=== PATIENT | male | born 1975 ===

== ENCOUNTER 2018-07-06 14:21 | Inpatient (IN) ==
[2018-07-06] MEDS ORDERED: SODIUM CHLORIDE 0.9% 1,000 ML IV STA (14:42)
[2018-07-06] MEDS ORDERED: PANTOPRAZOLE 40 MG VIAL IV STA (14:42)
[2018-07-06 15:01] LABS: Basophils # 0.1 10*3/uL (0.0-0.2); Basophils % 0.8 % (0.0-0.8); Eosinophils % 0.4 % (0.00-10.9); Hematocrit 35.9 VOL% (42.0-52.0); Immature Granulocytes % 5.6 %; Lymphocytes # 0.5 10*3/uL (1.4-4.0); Lymphocytes % 6.4 % (21.2-54.2); Mean Corpuscular HGB Conc 36.2 GM/DL (32-36); Mean Corpuscular Hemoglobin 33 PG (27-34); Mean Corpuscular Volume 90.9 FL (87-102); Mean Platelet Volume 9.6 FL (9.6-12.0); Monocytes # 0.8 10*3/uL (0.11-0.8); Monocytes % 10.6 % (1.7-12.7); NRBC # 0.05 10*3/uL; Neutrophils # 5.5 10*3/uL (1.4-7.4); Neutrophils % 76.2 % (38.7-73.9); Platelet Count 274 T/CUMM (130-400); Red Blood Count 3.95 MC/CUMM (3.8-5.5); Red Cell Distribution Width 12.9 % (9.3-17.3); White Blood Count 7.2 T/CUMM (4-12)
[2018-07-06 15:12] LABS: INR 1.2; PT Patient Result 12.6 SECS; Partial Thromboplastin Time 31.5 SECS (0-40)
[2018-07-06 15:18] LABS: Albumin 3.2 G/DL (3.4-5.0); Bilirubin,Total 1.3 MG/DL (0.2-1.0); Calcium 8.9 MG/DL (8.5-10.1); Osmolality,Calculated 269.2 MOS/KG (273-304); Total Protein 7.2 G/DL (6.4-8.3)
[2018-07-06 16:43] LABS: Lymphocytes 5 % (20-55); Metamyelocytes 1 %; Myelocytes 1 %; Segmented Neutrophils 83 % (50-85); Total Cells Counted 100
[2018-07-06 16:44] LABS: Anisocytosis Slight; Microcytosis Slight
[2018-07-06 16:52] LABS: Platelet Estimate Normal; Stomatocytes Slight
[2018-07-06] MEDS ORDERED: MORPHINE 4 MG/1 ML VIAL IV PRN (18:02)
[2018-07-06] MEDS ORDERED: ACETAMINOPHEN 325 MG TABLET PO PRN (18:02)
[2018-07-06] MEDS ORDERED: HYDROcod/ACETAMIN 7.5-325 MG/15 ML UDCUP PO PRN (18:16)
[2018-07-06] MEDS: POTASSIUM CHLORIDE RIDER 10 MEQ in PREMIX 1 EACH IV SCH ×4 (18:33→21:57)
[2018-07-06] MEDS: DEXTROSE 5% NACL 0.9% 1,000 ML IV SCH (18:33)
[2018-07-06 19:06] LABS: Basophils # 0.1 10*3/uL (0.0-0.2); Basophils % 0.8 % (0.0-0.8); Eosinophils % 0.5 % (0.00-10.9); Hematocrit 33.8 VOL% (42.0-52.0); Hemoglobin 11.9 GM/DL (14.0-18.0); Immature Granulocytes % 5.9 %; Immature Granulocytes Absolute 0.36 #; Lymphocytes # 0.5 10*3/uL (1.4-4.0); Lymphocytes % 7.7 % (21.2-54.2); Mean Corpuscular HGB Conc 35.2 GM/DL (32-36); Mean Corpuscular Hemoglobin 33 PG (27-34); Mean Corpuscular Volume 92.9 FL (87-102); Mean Platelet Volume 9.5 FL (9.6-12.0); Monocytes # 0.7 10*3/uL (0.11-0.8); Monocytes % 11.3 % (1.7-12.7); Neutrophils # 4.5 10*3/uL (1.4-7.4); Neutrophils % 73.8 % (38.7-73.9); Platelet Count 219 T/CUMM (130-400); Red Blood Count 3.64 MC/CUMM (3.8-5.5); Red Cell Distribution Width 13.1 % (9.3-17.3); White Blood Count 6.1 T/CUMM (4-12)
[2018-07-06] MEDS: PANTOPRAZOLE 40 MG VIAL IV SCH (20:45)
[2018-07-06 20:55] LABS: Lymphocytes 9 % (20-55); Segmented Neutrophils 76 % (50-85); Total Cells Counted 100
[2018-07-06 20:56] LABS: Macrocytosis Slight; Platelet Estimate Adequate
[2018-07-06 21:32] LABS: Basophils % 0.6 % (0.0-0.8); Eosinophils % 0.8 % (0.00-10.9); Hematocrit 29.8 VOL% (42.0-52.0); Hemoglobin 10.7 GM/DL (14.0-18.0); Immature Granulocytes Absolute 0.31 #; Lymphocytes # 0.5 10*3/uL (1.4-4.0); Lymphocytes % 8.8 % (21.2-54.2); Mean Corpuscular HGB Conc 35.9 GM/DL (32-36); Mean Corpuscular Hemoglobin 33 PG (27-34); Mean Corpuscular Volume 91.1 FL (87-102); Mean Platelet Volume 9.3 FL (9.6-12.0); Monocytes # 0.6 10*3/uL (0.11-0.8); Monocytes % 11.9 % (1.7-12.7); Neutrophils # 3.7 10*3/uL (1.4-7.4); Neutrophils % 71.9 % (38.7-73.9); Platelet Count 195 T/CUMM (130-400); Red Blood Count 3.27 MC/CUMM (3.8-5.5); Red Cell Distribution Width 12.9 % (9.3-17.3); White Blood Count 5.1 T/CUMM (4-12)
[2018-07-06 22:39] LABS: Eosinophils 2 % (0-10); Lymphocytes 12 % (20-55); Segmented Neutrophils 77 % (50-85); Total Cells Counted 100
[2018-07-06 22:50] LABS: Anisocytosis Slight; Microcytosis Slight; Polychromasia Slight
[2018-07-06 22:51] LABS: Platelet Estimate Normal
[2018-07-07] MEDS: DEXTROSE 5% NACL 0.9% 1,000 ML IV SCH ×3 (02:39→20:39)
[2018-07-07 05:37] LABS: Basophils % 0.6 % (0.0-0.8); Eosinophils # 0.1 10*3/uL (0.0-0.87); Hematocrit 29.3 VOL% (42.0-52.0); Hemoglobin 10.2 GM/DL (14.0-18.0); Immature Granulocytes % 6.3 %; Immature Granulocytes Absolute 0.31 #; Lymphocytes # 0.4 10*3/uL (1.4-4.0); Lymphocytes % 7.8 % (21.2-54.2); Mean Corpuscular HGB Conc 34.8 GM/DL (32-36); Mean Corpuscular Hemoglobin 33 PG (27-34); Mean Corpuscular Volume 93.9 FL (87-102); Mean Platelet Volume 9.4 FL (9.6-12.0); Monocytes # 0.6 10*3/uL (0.11-0.8); Monocytes % 12.9 % (1.7-12.7); Neutrophils # 3.5 10*3/uL (1.4-7.4); Neutrophils % 71.4 % (38.7-73.9); Platelet Count 193 T/CUMM (130-400); Red Blood Count 3.12 MC/CUMM (3.8-5.5); Red Cell Distribution Width 13.1 % (9.3-17.3); White Blood Count 4.9 T/CUMM (4-12)
[2018-07-07 05:51] LABS: Calcium 8.1 MG/DL (8.5-10.1); Osmolality,Calculated 275.5 MOS/KG (273-304); Potassium 3.3 MMOL/L (3.5-5.1)
[2018-07-07 05:52] LABS: Calcium 8.2 MG/DL (8.5-10.1); Osmolality,Calculated 276.5 MOS/KG (273-304); Potassium 3.4 MMOL/L (3.5-5.1)
[2018-07-07 06:08] LABS: Eosinophils 1 % (0-10); Hypochromasia 1+; Lymphocytes 10 % (20-55); Nucleated Red Blood Cells 1 (0-5); Platelet Estimate Adequate; Segmented Neutrophils 86 % (50-85); Total Cells Counted 100
[2018-07-07 06:09] LABS: Microcytosis Slight; Ovalocytes Slight
[2018-07-07] MEDS: PANTOPRAZOLE 40 MG VIAL IV SCH ×2 (08:17→20:32)
[2018-07-07 10:26] LABS: Basophils % 0.6 % (0.0-0.8); Eosinophils % 0.6 % (0.00-10.9); Hematocrit 29.4 VOL% (42.0-52.0); Hemoglobin 10.3 GM/DL (14.0-18.0); Immature Granulocytes % 5.1 %; Immature Granulocytes Absolute 0.26 #; Lymphocytes # 0.3 10*3/uL (1.4-4.0); Lymphocytes % 5.7 % (21.2-54.2); Mean Corpuscular Hemoglobin 33 PG (27-34); Mean Corpuscular Volume 93.6 FL (87-102); Mean Platelet Volume 9.3 FL (9.6-12.0); Monocytes # 0.5 10*3/uL (0.11-0.8); Monocytes % 10.7 % (1.7-12.7); Neutrophils # 3.9 10*3/uL (1.4-7.4); Neutrophils % 77.3 % (38.7-73.9); Platelet Count 189 T/CUMM (130-400); Red Blood Count 3.14 MC/CUMM (3.8-5.5); Red Cell Distribution Width 13.2 % (9.3-17.3); White Blood Count 5.1 T/CUMM (4-12)
[2018-07-07 11:19] LABS: Eosinophils 1 % (0-10); Lymphocytes 10 % (20-55); Microcytosis 1+; Segmented Neutrophils 80 % (50-85); Total Cells Counted 100
[2018-07-07] MEDS: SODIUM CHLORIDE 0.65% NASAL SPRAY 45 ML BOTTLE BOTH NARES SCH (14:02)
[2018-07-07] MEDS: MUPIROCIN 2% OINT 22 GM TUBE TOP SCH (14:03)
[2018-07-08] MEDS: MUPIROCIN 2% OINT 22 GM TUBE TOP SCH ×3 (00:39→09:27)
[2018-07-08] MEDS: SODIUM CHLORIDE 0.65% NASAL SPRAY 45 ML BOTTLE BOTH NARES SCH ×3 (00:39→09:27)
[2018-07-08] MEDS: DEXTROSE 5% NACL 0.9% 1,000 ML IV SCH (04:50)
[2018-07-08 05:11] LABS: Basophils % 0.5 % (0.0-0.8); Eosinophils # 0.1 10*3/uL (0.0-0.87); Eosinophils % 1.5 % (0.00-10.9); Hematocrit 26.7 VOL% (42.0-52.0); Hemoglobin 9.4 GM/DL (14.0-18.0); Immature Granulocytes % 7.4 %; Lymphocytes # 0.4 10*3/uL (1.4-4.0); Lymphocytes % 9.9 % (21.2-54.2); Mean Corpuscular HGB Conc 35.2 GM/DL (32-36); Mean Corpuscular Hemoglobin 33 PG (27-34); Mean Corpuscular Volume 92.4 FL (87-102); Mean Platelet Volume 9.5 FL (9.6-12.0); Monocytes # 0.5 10*3/uL (0.11-0.8); Monocytes % 11.1 % (1.7-12.7); Neutrophils # 2.8 10*3/uL (1.4-7.4); Neutrophils % 69.6 % (38.7-73.9); Platelet Count 179 T/CUMM (130-400); Red Blood Count 2.89 MC/CUMM (3.8-5.5); Red Cell Distribution Width 13.1 % (9.3-17.3); White Blood Count 4.1 T/CUMM (4-12)
[2018-07-08 05:15] LABS: Calcium 7.8 MG/DL (8.5-10.1); Osmolality,Calculated 269.8 MOS/KG (273-304); Potassium 2.9 MMOL/L (3.5-5.1)
[2018-07-08 05:40] LABS: Band Neutrophils 1 % (0-10); Eosinophils 1 % (0-10); Lymphocytes 11 % (20-55); Segmented Neutrophils 77 % (50-85); Total Cells Counted 100
[2018-07-08 05:41] LABS: Hypochromasia 1+; Microcytosis Slight; Ovalocytes Slight; Platelet Estimate Adequate
[2018-07-08] MEDS ORDERED: DEXT 5% NACL 0.45% KCL 40 MEQ 40 MEQ/1,000 ML BAG IV SCH (08:30)
[2018-07-08] MEDS: PANTOPRAZOLE 40 MG VIAL IV SCH (09:25)
[2018-07-08] MEDS ORDERED: LORazepam 2 MG/1 ML VIAL IV ONE (09:53)
[2018-07-08] MEDS ORDERED: POTASSIUM CHLORIDE 20 MEQ TABLET PO PRN (15:11)
[2018-07-08] MEDS ORDERED: MAGNESIUM SULF RIDER 2 GM in PREMIX 1 EACH IV ONE (15:14)
[2018-07-08] MEDS ORDERED: THIAMINE 200 MG/2 ML VIAL IV SCH ×2 (15:30→15:35)
[2018-07-08] MEDS ORDERED: MAGNESIUM SULF RIDER 4 GM in PREMIX 1 EACH IV PRN (15:32)
[2018-07-08] MEDS ORDERED: MAGNESIUM SULF RIDER 2 GM in PREMIX 1 EACH IV PRN (15:32)
[2018-07-08] MEDS ORDERED: THIAMINE INJ 500 MG in SODIUM CHLORIDE 0.9% 100 ML IV SCH (16:00)
[2018-07-08 16:01] VITALS: BP 127/85
[2018-07-08] MEDS ORDERED: LACTULOSE 20 GM/30 ML UDCUP PO SCH (21:00)
== END 2018-07-08 19:22 | disposition hospice, home (50) | DRG 147 ==
LOC: EDBD → EDUNIT# → N.ED 14:21 → N.EDINP 16:23 → SUATTDRO 16:23 → N.ICU 17:03 → N.4E 07-07 11:23
PROVIDERS: ADMIT Internal Medicine; ATTEND Internal Medicine

== ENCOUNTER 2020-09-07 18:22 | Inpatient (IN) ==
[2020-09-07] MEDS ORDERED: MORPHINE 4 MG/1 ML VIAL IV PRN (18:46)
[2020-09-07] MEDS ORDERED: ONDANSETRON 4 MG/2 ML VIAL IV PRN (18:46)
[2020-09-07] MEDS: DEXTROSE 5% NACL 0.45% 1,000 ML IV SCH (18:59)
[2020-09-07] MEDS ORDERED: DEXTROSE 5% NACL 0.45% 1,000 ML IV SCH (19:00)
[2020-09-07] MEDS ORDERED: SODIUM CHLORIDE 0.9% 1,000 ML IV STA (19:43)
[2020-09-08] MEDS: PIPERACILLIN/TAZOBACTAM 3,375 MG in SODIUM CHLORIDE 0.9% 100 ML IV SCH ×4 (02:36→21:56)
[2020-09-08 06:03] LABS: Basophils % 0.1 % (0.0-0.8); Hematocrit 39.6 VOL% (42.0-52.0); Hemoglobin 13.6 GM/DL (14.0-18.0); Immature Granulocytes % 0.6 %; Immature Granulocytes Absolute 0.09 #; Lymphocytes # 0.5 10*3/uL (1.4-4.0); Mean Corpuscular HGB Conc 34.3 GM/DL (32-36); Mean Corpuscular Volume 96.1 FL (87-102); Mean Platelet Volume 8.9 FL (9.6-12.0); Monocytes % 3.2 % (1.7-12.7); Neutrophils % 93.1 % (38.7-73.9); Platelet Count 233 T/CUMM (130-400); Red Blood Count 4.12 MC/CUMM (3.8-5.5); Red Cell Distribution Width 12.6 % (9.3-17.3); White Blood Count 15.2 T/CUMM (4-12)
[2020-09-08 06:16] LABS: Alanine Aminotransferase < 9 U/L (16-61); Albumin 2.5 G/DL (3.4-5.0); Alkaline Phosphatase 65 U/L (45-117); Aspartate Amino Transferase 9 U/L (0-37); Blood Urea Nitrogen 24 MG/DL (7-18); Calcium 8.5 MG/DL (8.5-10.1); Carbon Dioxide 28 MMOL/L (21-32); Estimated Glom Filtration Rate 112 ML/MIN; Glucose 96 MG/DL (74-106); Osmolality,Calculated 286.1 MOS/KG (273-304); Potassium 3.3 MMOL/L (3.5-5.1); Sodium 142 MMOL/L (136-145); Total Protein 6.2 G/DL (6.4-8.2)
[2020-09-08 06:47] LABS: Band Neutrophils 1 % (0-10); Lymphocytes 2 % (20-55); Segmented Neutrophils 95 % (50-85); Total Cells Counted 100
[2020-09-08 06:48] LABS: Microcytosis Slight; Platelet Estimate Normal
[2020-09-08] MEDS: PANTOPRAZOLE 40 MG VIAL IV SCH (08:16)
[2020-09-08] MEDS ORDERED: DIAZEPAM 5 MG TABLET PO ONE (09:00)
[2020-09-08] MEDS ORDERED: LACTATED RINGERS 1,000 ML IV SCH (09:00)
[2020-09-08] MEDS: POTASSIUM CHLORIDE RIDER 10 MEQ in PREMIX 1 EACH IV PRN ×4 (09:03→16:57)
[2020-09-08] MEDS ORDERED: LIDOCAINE 1%/EPI INJ 20 ML VIAL ONE (10:03)
[2020-09-08] MEDS ORDERED: TISSUE ADHESIVE 1 EACH APPLICATOR TOP ONE (10:03)
[2020-09-08] MEDS ORDERED: BUPIVACAINE MPF 0.25% 30 ML VIAL ONE (10:03)
[2020-09-08] MEDS ORDERED: fentaNYL 100 MCG/2 ML VIAL ONE (10:11)
[2020-09-08] MEDS ORDERED: MIDAZOLAM 2 MG/2 ML VIAL ONE (10:11)
[2020-09-08] MEDS ORDERED: SEVOFLURANE 1 UNIT/15 MINUTE INH ONE ×6 (10:11→12:27)
[2020-09-08] MEDS ORDERED: LIDOCAINE 2% 5 ML VIAL ONE (10:12)
[2020-09-08] MEDS ORDERED: propofoL 200 MG/20 ML VIAL IV ONE ×2 (10:12→11:26)
[2020-09-08] MEDS ORDERED: ROCURONIUM 50 MG/5 ML VIAL IV ONE ×3 (10:12→12:27)
[2020-09-08] MEDS ORDERED: ONDANSETRON 4 MG/2 ML VIAL ONE (10:45)
[2020-09-08] MEDS ORDERED: DEXAMETHASONE 4 MG/1 ML VIAL ONE (11:04)
[2020-09-08] MEDS ORDERED: LACTATED RINGERS 1,000 ML IV ONE (11:28)
[2020-09-08] MEDS ORDERED: GLYCOPYRROLATE 0.4 MG/2 ML VIAL ONE (11:41)
[2020-09-08] MEDS ORDERED: NEOSTIGMINE 10 MG/10 ML VIAL ONE (11:41)
[2020-09-08] MEDS ORDERED: HYDROmorphone 2 MG/1 ML VIAL IV PRN (12:39)
[2020-09-08] MEDS ORDERED: MEPERIDINE 25 MG/1 ML VIAL IV PRN (12:39)
[2020-09-08] MEDS ORDERED: PROMETHAZINE INJ 25 MG in SODIUM CHLORIDE 0.9% 50 ML IV PRN (12:39)
[2020-09-08] MEDS ORDERED: diphenhydrAMINE 50 MG/1 ML VIAL IV PRN (12:39)
[2020-09-08] MEDS ORDERED: ONDANSETRON 4 MG/2 ML VIAL IV PRN (12:39)
[2020-09-08] MEDS: DEXTROSE 5% NACL 0.45% 1,000 ML IV SCH ×3 (14:04→22:00)
[2020-09-09] MEDS: PIPERACILLIN/TAZOBACTAM 3,375 MG in SODIUM CHLORIDE 0.9% 100 ML IV SCH ×3 (05:41→21:46)
[2020-09-09] MEDS: DEXTROSE 5% NACL 0.45% 1,000 ML IV SCH (05:44)
[2020-09-09 06:02] LABS: Basophils % 0.2 % (0.0-0.8); Hematocrit 38.6 VOL% (42.0-52.0); Hemoglobin 12.8 GM/DL (14.0-18.0); Immature Granulocytes % 0.7 %; Immature Granulocytes Absolute 0.09 #; Lymphocytes # 0.5 10*3/uL (1.4-4.0); Lymphocytes % 3.9 % (21.2-54.2); Mean Corpuscular HGB Conc 33.2 GM/DL (32-36); Mean Corpuscular Volume 97.7 FL (87-102); Mean Platelet Volume 9.6 FL (9.6-12.0); Monocytes % 6.1 % (1.7-12.7); Neutrophils % 89.1 % (38.7-73.9); Platelet Count 245 T/CUMM (130-400); Red Blood Count 3.95 MC/CUMM (3.8-5.5); Red Cell Distribution Width 12.6 % (9.3-17.3); White Blood Count 12.4 T/CUMM (4-12)
[2020-09-09 06:27] LABS: Calcium 8.5 MG/DL (8.5-10.1); Osmolality,Calculated 285.1 MOS/KG (273-304); Potassium 3.7 MMOL/L (3.5-5.1)
[2020-09-09 06:33] LABS: Anisocytosis Slight; Band Neutrophils 10 % (0-10); Burr Cells Few; Lymphocytes 4 % (20-55); Platelet Estimate Normal; Segmented Neutrophils 81 % (50-85); Total Cells Counted 100
[2020-09-09] MEDS: PANTOPRAZOLE 40 MG VIAL IV SCH (09:02)
[2020-09-10] MEDS: PIPERACILLIN/TAZOBACTAM 3,375 MG in SODIUM CHLORIDE 0.9% 100 ML IV SCH ×3 (06:00→22:21)
[2020-09-10] MEDS: PANTOPRAZOLE 40 MG VIAL IV SCH (09:07)
[2020-09-10] MEDS ORDERED: SALIVA SUBSTITUTE SPRAY 60 ML CAN SWISH/SWAL PRN (09:35)
[2020-09-11 04:39] LABS: Basophils % 0.3 % (0.0-0.8); Eosinophils % 0.5 % (0.00-10.9); Hematocrit 37.7 VOL% (42.0-52.0); Hemoglobin 12.7 GM/DL (14.0-18.0); Immature Granulocytes % 0.8 %; Immature Granulocytes Absolute 0.06 #; Lymphocytes # 0.6 10*3/uL (1.4-4.0); Lymphocytes % 7.1 % (21.2-54.2); Mean Corpuscular HGB Conc 33.7 GM/DL (32-36); Mean Corpuscular Volume 96.9 FL (87-102); Mean Platelet Volume 9.2 FL (9.6-12.0); Monocytes % 12.7 % (1.7-12.7); Neutrophils % 78.6 % (38.7-73.9); Platelet Count 251 T/CUMM (130-400); Red Blood Count 3.89 MC/CUMM (3.8-5.5); Red Cell Distribution Width 12.4 % (9.3-17.3); White Blood Count 7.7 T/CUMM (4-12)
[2020-09-11] MEDS: PIPERACILLIN/TAZOBACTAM 3,375 MG in SODIUM CHLORIDE 0.9% 100 ML IV SCH (06:12)
[2020-09-11 08:12] VITALS: BP 120/68
[2020-09-11] MEDS: PANTOPRAZOLE 40 MG VIAL IV SCH (08:24)
[2020-09-11] MEDS ORDERED: CEFUROXIME 500 MG TABLET PO SCH (21:00)
[2020-09-12] MEDS ORDERED: PANTOPRAZOLE 40 MG TABLET PO SCH (06:30)
== END 2020-09-11 10:54 | disposition home or self-care (01) | DRG 338 ==
LOC: EDBD → EDUNIT# → N.EDINP 18:22 → N.ED 18:22 → N.5E 19:44
PROVIDERS: ADMIT Surgery; ATTEND Surgery

== ENCOUNTER 2021-10-13 13:28 | Inpatient (IN) ==
[2021-10-13] MEDS ORDERED: LACTATED RINGERS 1,000 ML IV ONE (14:23)
[2021-10-13 15:31] LABS: Basophils % 0.1 % (0.0-0.8); Hematocrit 32.2 VOL% (42.0-52.0); Hemoglobin 11.4 GM/DL (14.0-18.0); Immature Granulocytes % 0.8 %; Immature Granulocytes Absolute 0.08 #; Lymphocytes # 0.3 10*3/uL (1.4-4.0); Lymphocytes % 3.4 % (21.2-54.2); Mean Corpuscular HGB Conc 35.4 GM/DL (32-36); Mean Corpuscular Volume 88.2 FL (87-102); Mean Platelet Volume 8.7 FL (9.6-12.0); Monocytes # 0.4 10*3/uL (0.11-0.8); Monocytes % 3.6 % (1.7-12.7); Neutrophils % 92.1 % (38.7-73.9); Platelet Count 242 T/CUMM (130-400); Red Blood Count 3.65 MC/CUMM (3.8-5.5); Red Cell Distribution Width 13.2 % (9.3-17.3); White Blood Count 10.1 T/CUMM (4-12)
[2021-10-13 15:50] LABS: Alanine Aminotransferase 16 U/L (16-61); Albumin 3.2 G/DL (3.4-5.0); Alkaline Phosphatase 66 U/L (45-117); Aspartate Amino Transferase 13 U/L (0-37); Blood Urea Nitrogen 67 MG/DL (7-18); Calcium 8.7 MG/DL (8.5-10.1); Carbon Dioxide 29 MMOL/L (21-32); Chloride 103 MMOL/L (98-107); Glucose 113 MG/DL (74-106); Osmolality,Calculated 298.4 MOS/KG (273-304); Potassium 3.7 MMOL/L (3.5-5.1); Sodium 140 MMOL/L (136-145); Total Protein 6.9 G/DL (6.4-8.2)
[2021-10-13 16:13] LABS: Lymphocytes 3 % (20-55); Total Cells Counted 100
[2021-10-13 16:14] LABS: Anisocytosis 1+; Macrocytosis Slight; Microcytosis 1+; Platelet Estimate Normal; Polychromasia Slight; Target Cells Slight
[2021-10-13 16:15] LABS: Atypical Lymphocytes Few
[2021-10-13] MEDS ORDERED: ACETAMINOPHEN 325 MG TABLET PO PRN (16:34)
[2021-10-13] MEDS ORDERED: GLUCAGON 1 MG VIAL IM PRN (16:34)
[2021-10-13] MEDS ORDERED: hydrALAZINE 20 MG/1 ML VIAL IV PRN (16:34)
[2021-10-13] MEDS ORDERED: ONDANSETRON 4 MG/2 ML VIAL IV PRN (16:34)
[2021-10-13] MEDS ORDERED: DEXTROSE 10% 250 ML BAG IV PRN (16:41)
[2021-10-13 16:58] LABS: Uric Acid 6.6 MG/DL (3.5-7.2)
[2021-10-13] MEDS ORDERED: LACTATED RINGERS 1,000 ML IV SCH (17:00)
[2021-10-13] MEDS ORDERED: SODIUM CHLORIDE 0.9% 1,000 ML IV ONE (22:01)
[2021-10-13] MEDS ORDERED: SODIUM CHLORIDE 0.9% 1,000 ML IV SCH (22:30)
[2021-10-14] MEDS: ALBUTEROL 2.5 MG/3 ML NEB RESP TX SCH ×5 (00:03→19:25)
[2021-10-14 01:41] LABS: Basophils % 0.1 % (0.0-0.8); Hematocrit 26.7 VOL% (42.0-52.0); Immature Granulocytes % 1.3 %; Immature Granulocytes Absolute 0.09 #; Lymphocytes # 0.5 10*3/uL (1.4-4.0); Lymphocytes % 7.4 % (21.2-54.2); Mean Corpuscular HGB Conc 34.5 GM/DL (32-36); Mean Platelet Volume 8.9 FL (9.6-12.0); Monocytes # 0.3 10*3/uL (0.11-0.8); Monocytes % 3.8 % (1.7-12.7); Neutrophils % 87.4 % (38.7-73.9); Red Cell Distribution Width 13.2 % (9.3-17.3)
[2021-10-14 01:42] LABS: Hemoglobin 9.2 GM/DL (14.0-18.0); Platelet Count 181 T/CUMM (130-400); White Blood Count 6.8 T/CUMM (4-12)
[2021-10-14] MEDS ORDERED: VANCOMYCIN INJ 1,000 MG in SODIUM CHLORIDE 0.9% 250 ML IV ONE (02:00)
[2021-10-14 02:15] LABS: Albumin 2.8 G/DL (3.4-5.0); Bilirubin,Total 0.7 MG/DL (0.20-1.00); Calcium 8.4 MG/DL (8.5-10.1); Osmolality,Calculated 293.3 MOS/KG (273-304); Potassium 3.3 MMOL/L (3.5-5.1); Risk Ratio 2.51; Thyroid Stimulating Hormone 4.6 uIU/ml (0.358-3.74); VLDL Cholesterol 23.6 MG/DL
[2021-10-14] MEDS: PIPERACILLIN/TAZOBACTAM 3,375 MG in SODIUM CHLORIDE 0.9% 100 ML IV SCH ×4 (04:01→21:53)
[2021-10-14] MEDS ORDERED: POTASSIUM CHLORIDE INJ 10 MEQ in SODIUM CHLORIDE 0.9% 100 ML IV SCH (07:30)
[2021-10-14 07:42] LABS: Folate 1.5 NG/ML (5.38-24.0)
[2021-10-14] MEDS ORDERED: POTASSIUM CHLORIDE RIDER 10 MEQ/100 ML PREMIX IV ONE (08:30)
[2021-10-14 09:12] LABS: Free T4 (Free Thyroxine) 0.91 NG/DL (0.76-1.46)
[2021-10-14] MEDS: THIAMINE 100 MG TABLET PO SCH (09:44)
[2021-10-14] MEDS: FOLIC ACID 1 MG TABLET PO SCH (09:44)
[2021-10-14] MEDS: PANTOPRAZOLE 40 MG VIAL IV SCH (09:44)
[2021-10-14] MEDS: CHOLECALCIFEROL 5,000 UNIT TABLET PO SCH (09:44)
[2021-10-14] MEDS: DEXTROSE 5% NACL 0.9% 1,000 ML IV SCH ×2 (09:55→21:54)
[2021-10-14 14:20] LABS: % Iron Saturation 46.4 % (18-50)
[2021-10-14] MEDS: VANCOMYCIN INJ 750 MG in SODIUM CHLORIDE 0.9% 250 ML IV SCH (16:53)
[2021-10-15] MEDS: ALBUTEROL 2.5 MG/3 ML NEB RESP TX SCH ×4 (00:19→20:00)
[2021-10-15 03:29] LABS: RBC,Urine 1 /HPF (0-4); Squamous Epithelial Cell,Urine Occasional /HPF (0-10)
[2021-10-15 03:30] LABS: Bilirubin,Urine Small mg/dL (Negative); Glucose,Urine (UA) Negative (Negative); Ketones,Urine 15 mg/dL (Negative); Nitrite,Urine Negative (Negative); Protein,Urine Trace mg/dL (Negative); Urine Appearance Clear (Clear); Urine Color Dark yellow (Yellow); Urine pH 5.5 (4.5-8.0)
[2021-10-15 03:31] LABS: Blood, Urine Negative (Negative)
[2021-10-15] MEDS: VANCOMYCIN INJ 750 MG in SODIUM CHLORIDE 0.9% 250 ML IV SCH (03:34)
[2021-10-15 05:31] LABS: Basophils % 0.1 % (0.0-0.8); Eosinophils % 0.1 % (0.00-10.9); Hematocrit 26.1 VOL% (42.0-52.0); Hemoglobin 8.8 GM/DL (14.0-18.0); Immature Granulocytes % 0.6 %; Immature Granulocytes Absolute 0.09 #; Lymphocytes # 0.3 10*3/uL (1.4-4.0); Mean Corpuscular HGB Conc 33.7 GM/DL (32-36); Mean Corpuscular Volume 92.2 FL (87-102); Mean Platelet Volume 8.9 FL (9.6-12.0); Monocytes # 0.5 10*3/uL (0.11-0.8); Monocytes % 3.2 % (1.7-12.7); Platelet Count 157 T/CUMM (130-400); Red Blood Count 2.83 MC/CUMM (3.8-5.5); Red Cell Distribution Width 13.4 % (9.3-17.3); White Blood Count 16.1 T/CUMM (4-12)
[2021-10-15 05:44] LABS: Albumin 2.6 G/DL (3.4-5.0); Bilirubin,Total 0.8 MG/DL (0.20-1.00); Calcium 8.6 MG/DL (8.5-10.1); Potassium 2.9 MMOL/L (3.5-5.1); Total Protein 5.7 G/DL (6.4-8.2)
[2021-10-15 06:02] LABS: Hypochromia Slight; Lymphocytes 2 % (20-55); Microcytosis Slight; Nucleated Red Blood Cells 1 (0-5); Ovalocytes Slight; Platelet Estimate Adequate; Total Cells Counted 100
[2021-10-15] MEDS: PIPERACILLIN/TAZOBACTAM 3,375 MG in SODIUM CHLORIDE 0.9% 100 ML IV SCH ×3 (06:56→23:38)
[2021-10-15] MEDS ORDERED: AMOXICILLIN/CLAV 875 MG TABLET PO SCH (09:00)
[2021-10-15] MEDS: PANTOPRAZOLE 40 MG VIAL IV SCH (09:17)
[2021-10-15] MEDS: CHOLECALCIFEROL 5,000 UNIT TABLET PO SCH (09:17)
[2021-10-15] MEDS: FOLIC ACID 1 MG TABLET PO SCH (09:17)
[2021-10-15] MEDS: THIAMINE 100 MG TABLET PO SCH (09:17)
[2021-10-15] MEDS: LEVOFLOXACIN INJ 750 MG/150 ML PREMIX IV SCH (13:19)
[2021-10-15] MEDS: DEXTROSE 5% NACL 0.9% 1,000 ML IV SCH (22:55)
[2021-10-16] MEDS: ALBUTEROL 2.5 MG/3 ML NEB RESP TX SCH ×4 (01:00→19:31)
[2021-10-16] MEDS: DEXTROSE 5% NACL 0.9% 1,000 ML IV SCH (04:28)
[2021-10-16 05:13] LABS: Basophils % 0.2 % (0.0-0.8); Eosinophils % 0.2 % (0.00-10.9); Hematocrit 20.7 VOL% (42.0-52.0); Hemoglobin 6.9 GM/DL (14.0-18.0); Immature Granulocytes % 1.7 %; Immature Granulocytes Absolute 0.31 #; Lymphocytes # 0.3 10*3/uL (1.4-4.0); Lymphocytes % 1.7 % (21.2-54.2); Mean Corpuscular HGB Conc 33.3 GM/DL (32-36); Mean Corpuscular Volume 92.8 FL (87-102); Mean Platelet Volume 9.2 FL (9.6-12.0); Monocytes # 0.5 10*3/uL (0.11-0.8); Monocytes % 2.7 % (1.7-12.7); Neutrophils % 93.5 % (38.7-73.9); Platelet Count 105 T/CUMM (130-400); Red Blood Count 2.23 MC/CUMM (3.8-5.5); Red Cell Distribution Width 13.4 % (9.3-17.3); White Blood Count 17.8 T/CUMM (4-12)
[2021-10-16 05:20] LABS: INR 1.5; PT Patient Result 16.1 SECS (10.5-12.0)
[2021-10-16 05:37] LABS: Calcium 7.6 MG/DL (8.5-10.1); Osmolality,Calculated 294.1 MOS/KG (273-304); Potassium 2.6 MMOL/L (3.5-5.1)
[2021-10-16] MEDS: PIPERACILLIN/TAZOBACTAM 3,375 MG in SODIUM CHLORIDE 0.9% 100 ML IV SCH ×2 (05:42→15:31)
[2021-10-16 05:48] LABS: Eosinophils 1 % (0-10); Total Cells Counted 100
[2021-10-16 05:49] LABS: Hypochromia Slight
[2021-10-16] MEDS ORDERED: SODIUM CHLORIDE 0.9% 1,000 ML IV PRN (07:13)
[2021-10-16] MEDS ORDERED: MAGNESIUM SULF RIDER 4 GM/100 ML PREMIX IV ONE (07:38)
[2021-10-16] MEDS ORDERED: LACTATED RINGERS 1,000 ML IV SCH (08:00)
[2021-10-16] MEDS: THIAMINE 100 MG TABLET PO SCH ×2 (09:24→09:59)
[2021-10-16] MEDS: FOLIC ACID 1 MG TABLET PO SCH ×2 (09:24→09:56)
[2021-10-16] MEDS: POTASSIUM CHLORIDE RIDER 10 MEQ/100 ML PREMIX IV SCH ×4 (09:55→12:40)
[2021-10-16] MEDS: PANTOPRAZOLE 40 MG VIAL IV SCH (09:58)
[2021-10-16] MEDS: CHOLECALCIFEROL 5,000 UNIT TABLET PO SCH (09:59)
[2021-10-16] MEDS: LEVOFLOXACIN INJ 750 MG/150 ML PREMIX IV SCH (12:49)
[2021-10-16] MEDS ORDERED: POTASSIUM CHLORIDE 20 MEQ TABLET PO ONE (14:30)
[2021-10-16 16:07] LABS: Potassium 3.1 MMOL/L (3.5-5.1)
[2021-10-16] MEDS: DEXT 5% NACL 0.45% KCL 40 MEQ 40 MEQ/1,000 ML BAG IV SCH (18:45)
[2021-10-17] MEDS: ALBUTEROL 2.5 MG/3 ML NEB RESP TX SCH ×4 (00:50→19:19)
[2021-10-17] MEDS: PIPERACILLIN/TAZOBACTAM 3,375 MG in SODIUM CHLORIDE 0.9% 100 ML IV SCH ×4 (01:45→21:56)
[2021-10-17 06:13] LABS: Basophils % 0.1 % (0.0-0.8); Eosinophils # 0.1 10*3/uL (0.0-0.87); Eosinophils % 0.4 % (0.00-10.9); Hematocrit 27.1 VOL% (42.0-52.0); Hemoglobin 9.2 GM/DL (14.0-18.0); Immature Granulocytes % 2.2 %; Immature Granulocytes Absolute 0.32 #; Lymphocytes # 0.4 10*3/uL (1.4-4.0); Lymphocytes % 2.6 % (21.2-54.2); Mean Corpuscular HGB Conc 33.9 GM/DL (32-36); Mean Platelet Volume 9.8 FL (9.6-12.0); Monocytes # 0.5 10*3/uL (0.11-0.8); Neutrophils % 91.7 % (38.7-73.9); Platelet Count 117 T/CUMM (130-400); Red Blood Count 3.08 MC/CUMM (3.8-5.5); Red Cell Distribution Width 14.5 % (9.3-17.3); White Blood Count 14.8 T/CUMM (4-12)
[2021-10-17 06:26] LABS: Calcium 8.1 MG/DL (8.5-10.1); Osmolality,Calculated 277.4 MOS/KG (273-304); Potassium 3.8 MMOL/L (3.5-5.1)
[2021-10-17 06:31] LABS: Eosinophils 1 % (0-10); Lymphocytes 2 % (20-55); Total Cells Counted 100
[2021-10-17] MEDS: DEXT 5% NACL 0.45% KCL 40 MEQ 40 MEQ/1,000 ML BAG IV SCH (07:07)
[2021-10-17] MEDS ORDERED: LACTATED RINGERS 1,000 ML IV SCH (08:00)
[2021-10-17] MEDS: CHOLECALCIFEROL 5,000 UNIT TABLET PO SCH (08:23)
[2021-10-17] MEDS: FOLIC ACID 1 MG TABLET PO SCH (08:23)
[2021-10-17] MEDS: PANTOPRAZOLE 40 MG VIAL IV SCH (08:23)
[2021-10-17] MEDS: THIAMINE 100 MG TABLET PO SCH (08:23)
[2021-10-17] MEDS ORDERED: LIDOCAINE 2% 5 ML VIAL ONE (10:39)
[2021-10-17] MEDS ORDERED: propofoL 200 MG/20 ML VIAL IV ONE (10:39)
[2021-10-17] MEDS ORDERED: ETOMIDATE 20 MG/10 ML VIAL IV ONE (10:39)
[2021-10-17] MEDS: DEXTROSE 5% NACL 0.9% 1,000 ML IV SCH (12:32)
[2021-10-17] MEDS: LEVOFLOXACIN INJ 750 MG/150 ML PREMIX IV SCH (12:43)
[2021-10-18] MEDS: ALBUTEROL 2.5 MG/3 ML NEB RESP TX SCH ×3 (00:50→14:31)
[2021-10-18 04:49] LABS: Basophils % 0.1 % (0.0-0.8); Eosinophils # 0.1 10*3/uL (0.0-0.87); Hematocrit 26.5 VOL% (42.0-52.0); Hemoglobin 9.2 GM/DL (14.0-18.0); Immature Granulocytes % 1.7 %; Immature Granulocytes Absolute 0.14 #; Lymphocytes # 0.3 10*3/uL (1.4-4.0); Lymphocytes % 4.1 % (21.2-54.2); Mean Corpuscular HGB Conc 34.7 GM/DL (32-36); Mean Corpuscular Volume 87.7 FL (87-102); Mean Platelet Volume 9.7 FL (9.6-12.0); Monocytes # 0.3 10*3/uL (0.11-0.8); Monocytes % 4.2 % (1.7-12.7); Neutrophils % 88.9 % (38.7-73.9); Platelet Count 116 T/CUMM (130-400); Red Blood Count 3.02 MC/CUMM (3.8-5.5); Red Cell Distribution Width 14.3 % (9.3-17.3); White Blood Count 8.1 T/CUMM (4-12)
[2021-10-18 05:07] LABS: Osmolality,Calculated 264.2 MOS/KG (273-304); Phosphorous 2.1 MG/DL (2.5-4.9); Potassium 3.8 MMOL/L (3.5-5.1)
[2021-10-18 05:08] LABS: Eosinophils 4 % (0-10); Lymphocytes 4 % (20-55); Total Cells Counted 100
[2021-10-18] MEDS: PIPERACILLIN/TAZOBACTAM 3,375 MG in SODIUM CHLORIDE 0.9% 100 ML IV SCH ×2 (05:28→14:24)
[2021-10-18] MEDS ORDERED: MAGNESIUM SULF RIDER 2 GM/50 ML PREMIX IV ONE (07:24)
[2021-10-18] MEDS: DEXT 5% NACL 0.45% KCL 40 MEQ 40 MEQ/1,000 ML BAG IV SCH ×3 (08:42→14:24)
[2021-10-18] MEDS: PANTOPRAZOLE 40 MG VIAL IV SCH (08:50)
[2021-10-18] MEDS: THIAMINE 100 MG TABLET PO SCH (08:51)
[2021-10-18] MEDS: CHOLECALCIFEROL 5,000 UNIT TABLET PO SCH (08:51)
[2021-10-18] MEDS: FOLIC ACID 1 MG TABLET PO SCH (08:51)
[2021-10-18] MEDS: LEVOFLOXACIN INJ 750 MG/150 ML PREMIX IV SCH (13:45)
[2021-10-18 14:04] VITALS: BP 112/73
[2021-10-18 16:37] LABS: Phosphorous 2.1 MG/DL (2.5-4.9)
== END 2021-10-18 17:54 | disposition hospice, home (50) | DRG 146 ==
LOC: EDUNIT# → N.ED 13:28 → N.EDINP 16:35 → N.TELES 19:25
PROVIDERS: ADMIT Internal Medicine; ATTEND Internal Medicine
PROC: EGDWPEG (ICD-10-PCS; 2021-10-17 11:35)